=== PATIENT | male | born 1980 | race African-American/Black ===

== ENCOUNTER 2018-04-28 07:29 | Inpatient (IN) | payer SELFPAY ==
[2018-04-28] MEDS ORDERED: Fentanyl 20 mcg/ml (100 ml CADD) IV PRN (07:49)
[2018-04-28] MEDS ORDERED: Fentanyl 100 MCG/2 ML VIAL ONE (07:50)
[2018-04-28 07:51] LABS: pH, Arterial 7.35 (7.35-7.45)
[2018-04-28 07:52] LABS: Actual Bicarbonate (HCO3a) 20.8 mEq/L (22-28); Base Excess (BEa) -4.4 mEq/L (-2.0 to +3.0); CO2 Tension 38.8 mmHg (35.0-45.0); Calcium, Ionized 1.1 mmol/L (1.12-1.30); Hemoglobin (Hb) 11.3 g/dL (14.0-18.0); O2 Tension (PaO2) 301.6 mmHg (80.0-100.0)
[2018-04-28 07:53] LABS: Analyzer IN Cardio ER; Puncture Site LRA
[2018-04-28 08:09] LABS: Hemoglobin 11.7 g/dL (14.0-18.0); Mean Corpuscular HGB CONC 33.2 g/dL (32.0-36.0); Mean Corpuscular Hemoglobin 28.7 pg (27.0-31.0); Mean Corpuscular Volume 86.5 fL (78.0-98.0); Mean Platelet Volume 7.7 fL (7.4-10.4); Platelet Count 180 thou/uL (130-400); RBC Distribution Width 12.9 % (11.5-14.5); Red Blood Cell (RBC) Count 4.07 mill/uL (4.70-6.10); White Blood Cell (WBC) Count 26.6 thou/uL (4.8-10.8)
[2018-04-28 08:17] LABS: INR-International Normal Ratio 1.1; PTT 26.7 SEC (22.9-36.1); Prothrombin Time 14.4 SEC (12.0-14.7)
[2018-04-28] MEDS ORDERED: Vecuronium 10 MG VIAL ONE (08:25)
[2018-04-28] MEDS ORDERED: Midazolam HCl 2 mg/2 ml Vial ONE (08:25)
[2018-04-28 08:26] LABS: ALT (SGPT) 13 U/L (8-55); AST (SGOT) 18 U/L (5-34); Albumin 3.6 g/dL (3.5-5.0); Alcohol 95 mg/dL (Less than 10); Alkaline Phosphatase 81 U/L (40-150); Anion Gap 14 mmol/L (10-20); BUN (Urea Nitrogen) 8 mg/dL (8.9-20.6); Bilirubin, Total 0.4 mg/dL (0.2-1.2); Calc. Creatinine Clearance 0 mL/min (70-130); Calcium 7.9 mg/dL (7.8-10.44); Carbon Dioxide 21 mmol/L (22-29); Chloride 108 mmol/L (98-107); Estimated GFR-MDRD Greater than 90; Globulin 2.6 g/dL (2.4-3.5); Glucose 152 mg/dL (70-105); Potassium 3.7 mmol/L (3.5-5.1); Protein, Total 6.2 g/dL (6.0-8.3); Sodium 139 mmol/L (136-145)
[2018-04-28 08:28] LABS: Band 6 % (5-11); Crenated RBC SLIGHT = 1-5 cells (100X) (None Seen); Lymphocytes 4 % (21-51); MDiff Complete? YES; Monocytes 4 % (0-10); Neutrophil 83 % (42-75); PLT Morphology Comment Appears Adequate; Reactive Lymphocytes 3 % (0-10)
[2018-04-28] MEDS ORDERED: CEFAZOLIN/Water 2 GM/20 ML SYRINGE SLOW IVP SCH (08:45)
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
[2018-04-28] MEDS ORDERED: Dextrose 5% in Water 1,000 ML IV PRN (09:54)
[2018-04-28] MEDS ORDERED: hydrALAZINE 20 MG/ML VIAL SLOW IVP PRN (09:54)
[2018-04-28] MEDS ORDERED: Ondansetron HCl/PF 4 MG/2 ML Vial IVP PRN (09:54)
[2018-04-28] MEDS ORDERED: Calcium Chloride 1 GM/10 ML Abboject SYRINGE IVP SCH (09:54)
[2018-04-28] MEDS ORDERED: Dextrose 50% Abboject 50 ML SYRINGE SLOW IVP PRN (09:54)
[2018-04-28] MEDS ORDERED: Ondansetron ODT 4 MG TAB PO PRN (09:54)
[2018-04-28 09:58] VITALS: BMI 23.3
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
[2018-04-28] MEDS ORDERED: Ketorolac Tromethamine 30 MG/ML VIAL IVP SCH (10:30)
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
[2018-04-28] MEDS: Sodium Chloride 0.9% 1,000 ML IV SCH ×2 (10:31→17:34)
[2018-04-28 10:42] LABS: Hemoglobin 11.1 g/dL (14.0-18.0)
[2018-04-28] MEDS ORDERED: ISOVUE-370 76%-LOCM 1 ML ONE (11:20)
[2018-04-28] MEDS ORDERED: Acetaminophen 1,000 MG in Premix Bag 1 BAG IVPB SCH (12:00)
[2018-04-28] MEDS: Gabapentin 300 MG CAP PO SCH ×2 (14:12→20:59)
[2018-04-28] MEDS ORDERED: traMADol HCl 50 MG TAB PO PRN ×2 (14:39)
[2018-04-28] MEDS: Acetaminophen 500 MG TAB PO SCH ×2 (15:47→20:59)
[2018-04-28] MEDS: Ketorolac Tromethamine 30 MG/ML VIAL IVP SCH (17:35)
[2018-04-28] MEDS: Famotidine 20 MG TAB PO SCH (20:59)
[2018-04-29] MEDS: Ketorolac Tromethamine 30 MG/ML VIAL IVP SCH ×4 (00:33→18:49)
[2018-04-29] MEDS: Sodium Chloride 0.9% 1,000 ML IV SCH ×3 (02:27→18:15)
[2018-04-29] MEDS: Acetaminophen 500 MG TAB PO SCH ×2 (03:17→08:27)
[2018-04-29 06:15] LABS: #Basophils 0.1 thou/uL (0.0-0.2); #Eosinphils 0.1 thou/uL (0.0-0.7); #Lymphocytes 2.6 thou/uL (1.20-3.40); #Neutrophils 10.4 thou/uL (1.40-6.50); %Basophils 0.4 % (0.0-1.0); %Eosinophils 0.7 % (0.0-10.0); %Lymphocytes 16.9 % (21.0-51.0); %Monocytes 13.4 % (0.0-10.0); %Neutrophils 68.6 % (42.0-75.0); Hemoglobin 8.2 g/dL (14.0-18.0); Mean Corpuscular HGB CONC 34.4 g/dL (32.0-36.0); Mean Corpuscular Hemoglobin 29.6 pg (27.0-31.0); Mean Corpuscular Volume 86.3 fL (78.0-98.0); Mean Platelet Volume 7.9 fL (7.4-10.4); Platelet Count 135 thou/uL (130-400); Red Blood Cell (RBC) Count 2.75 mill/uL (4.70-6.10); White Blood Cell (WBC) Count 15.2 thou/uL (4.8-10.8)
[2018-04-29 06:16] LABS: Anion Gap 7 mmol/L (10-20); BUN (Urea Nitrogen) 7 mg/dL (8.9-20.6); Calc. Creatinine Clearance 145 mL/min (70-130); Calcium 8.1 mg/dL (7.8-10.44); Carbon Dioxide 29 mmol/L (22-29); Chloride 109 mmol/L (98-107); Estimated GFR-MDRD Greater than 90; Glucose 91 mg/dL (70-105); Potassium 3.9 mmol/L (3.5-5.1); Sodium 141 mmol/L (136-145)
[2018-04-29] MEDS: Gabapentin 300 MG CAP PO SCH ×3 (08:27→20:50)
[2018-04-29] MEDS: Famotidine 20 MG TAB PO SCH ×2 (08:27→20:50)
[2018-04-29] MEDS ORDERED: Midazolam HCl 2 mg/2 ml Vial ONE (12:53)
[2018-04-29] MEDS ORDERED: Fentanyl 100 MCG/2 ML VIAL ONE ×2 (12:53)
[2018-04-29] MEDS ORDERED: Lidocaine 2% 10 ML INJ ONE (13:00)
[2018-04-29] MEDS ORDERED: Hetastarch 6% 500 ML 0 ML ONE (13:00)
[2018-04-29] MEDS ORDERED: Heparin 10,000 UNITS/1 ML VIAL ONE (13:01)
[2018-04-29] MEDS: Acetaminophen 1,000 MG in Premix Bag 1 BAG IVPB SCH ×2 (13:35→18:50)
[2018-04-29] MEDS ORDERED: ePHEDrine/0.9% NaCl/PF SYRINGE 50 mg/10 ml ONE (14:22)
[2018-04-29] MEDS ORDERED: PHENYLEPHRINE-NS 100 MCG/ML 10 ML SYRINGE ONE (14:22)
[2018-04-29] MEDS ORDERED: Lidocaine 1% PF 5 ML VIAL ONE (14:22)
[2018-04-29] MEDS ORDERED: PROPOFOL 200 MG/20 ML VIAL ONE (14:22)
[2018-04-29] MEDS ORDERED: Ondansetron HCl/PF 4 MG/2 ML Vial ONE (14:22)
[2018-04-29] MEDS ORDERED: Betamet Acet/Betamet Na Ph 30 MG/5 ML VIAL ONE ×2 (14:50→15:05)
[2018-04-29] MEDS ORDERED: Bacitracin Zinc Ointment 30 gm TUBE ONE (14:54)
[2018-04-29] MEDS ORDERED: Sodium Chloride 0.9% 10 ML ONE (14:54)
[2018-04-29] MEDS ORDERED: Sodium Chloride 0.9% 20 ML ONE (15:12)
[2018-04-29] MEDS ORDERED: Thrombin 5000 UNITS/5 ML VIAL ONE (15:28)
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
[2018-04-29] MEDS: Pregabalin 50 MG CAP PO SCH (20:49)
[2018-04-30] MEDS: Acetaminophen 1,000 MG in Premix Bag 1 BAG IVPB SCH ×3 (01:23→12:50)
[2018-04-30] MEDS: Ketorolac Tromethamine 30 MG/ML VIAL IVP SCH (01:23)
[2018-04-30] MEDS: Sodium Chloride 0.9% 1,000 ML IV SCH ×2 (04:51→14:10)
[2018-04-30] MEDS: Pregabalin 50 MG CAP PO SCH (09:08)
[2018-04-30] MEDS: Famotidine 20 MG TAB PO SCH ×2 (09:09→21:02)
[2018-04-30] MEDS: Gabapentin 300 MG CAP PO SCH ×3 (09:10→21:01)
[2018-04-30] MEDS: Acetaminophen/Codeine 30-300mg Tablet PO PRN ×2 (11:55→21:02)
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
[2018-04-30] MEDS: CEFAZOLIN 1 GM VIAL IM SCH (17:50)
[2018-04-30] MEDS: Acetaminophen 500 MG TAB PO SCH ×2 (18:40→23:49)
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
[2018-05-01] MEDS ORDERED: Acetaminophen 325 MG TAB PO PRN (00:42)
[2018-05-01] MEDS ORDERED: diphenhydrAMINE 25 MG CAP PO PRN (00:44)
[2018-05-01] MEDS ORDERED: Sterile Water 10 ML VIAL FS SCH (01:00)
[2018-05-01] MEDS ORDERED: Sterile Water 10 ML VIAL FS PRN (01:15)
[2018-05-01] MEDS: CEFAZOLIN 1 GM VIAL IM SCH ×2 (01:33→12:14)
[2018-05-01 04:06] VITALS: TEMP 98.4
[2018-05-01 07:00] LABS: Band 6 % (5-11); Lymphocytes 17 % (21-51); MDiff Complete? YES; Mean Corpuscular HGB CONC 33.9 g/dL (32.0-36.0); Mean Corpuscular Hemoglobin 29.9 pg (27.0-31.0); Mean Corpuscular Volume 88.2 fL (78.0-98.0); Mean Platelet Volume 8.4 fL (7.4-10.4); Monocytes 6 % (0-10); Neutrophil 71 % (42-75); PLT Morphology Comment Appears Adequate; Platelet Count 161 thou/uL (130-400); Red Blood Cell (RBC) Count 3.34 mill/uL (4.70-6.10); White Blood Cell (WBC) Count 21.2 thou/uL (4.8-10.8)
[2018-05-01] MEDS: Famotidine 20 MG TAB PO SCH (09:18)
[2018-05-01] MEDS: Gabapentin 300 MG CAP PO SCH (09:18)
[2018-05-01] MEDS: Acetaminophen/Codeine 30-300mg Tablet PO PRN (09:22)
[2018-05-01 12:39] VITALS: BP 124/73
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
== END 2018-05-01 15:20 | disposition home or self-care (01) | DRG 907 ==
LOC: EDBD 07:29 → ERS 07:29 → EEVIPCON 09:01 → CCU 09:01 → SURG A 04-29 01:56
PROVIDERS: ADMIT Surgery; ATTEND Surgery
PROC: 03Q70ZZ Repair Right Brachial Artery, Open Approach (ICD-10-PCS; principal; 2018-04-28)
PROC: 01Q50ZZ Repair Median Nerve, Open Approach (ICD-10-PCS; 2018-04-29)
PROC: 0LM Tendons, Reattachment (ICD-10-PCS; 2018-04-29)
PROC: 01Q60ZZ Repair Radial Nerve, Open Approach (ICD-10-PCS; 2018-04-29)
PROC: 0KD90ZZ Extraction of Right Lower Arm and Wrist Muscle, Open Approach (ICD-10-PCS; 2018-04-29)
PROC: 30233N1 Transfusion of Nonautologous Red Blood Cells into Peripheral Vein, Percutaneous Approach (ICD-10-PCS; 2018-04-29)
DX: S45.111A Laceration of brachial artery, right side, initial encounter (principal); T79.4XXA Traumatic shock, initial encounter; J96.00 Acute respiratory failure, unspecified whether with hypoxia or hypercapnia; S56.521A Laceration of other extensor muscle, fascia and tendon at forearm level, right arm, initial encounter; S56.221A Laceration of other flexor muscle, fascia and tendon at forearm level, right arm, initial encounter; D62 Acute posthemorrhagic anemia; S54.11XA Injury of median nerve at forearm level, right arm, initial encounter; S51.811A Laceration without foreign body of right forearm, initial encounter; S54.21XA Injury of radial nerve at forearm level, right arm, initial encounter; X99.1XXA Assault by knife, initial encounter
CPT/HCPCS: 36415; 36430; 71045; 80048; 80053; 80307; 82150; 82805; 83605; 85025; 86850; 86900; 86901; 94002; 96365; 96375; 96376; 99292; A4216; G0390; J0131; J0690; J0702; J1644; J1885; J2001; J2250; J2405; J2704; J3010; J3370; J3490; J7050; P9016; P9048

== ENCOUNTER 2019-02-20 12:51 | Emergency (ER) | payer SELFPAY | END 2019-02-20 13:22 | disposition home or self-care (01) | LOC: ERS 12:51 | DX: H60.91 Unspecified otitis externa, right ear (principal); F41.9 Anxiety disorder, unspecified; F31.9 Bipolar disorder, unspecified; F20.9 Schizophrenia, unspecified; Z79.899 Other long term (current) drug therapy | CPT/HCPCS: 99282 ==

== ENCOUNTER 2025-08-07 11:37 | Emergency (ER) | payer OTHER, SELFPAY ==
[2025-08-07 14:05] LABS: #Basophils 0.06 10x3/uL (0.0-0.2); #Eosinophils 0.09 10x3/uL (0.0-0.7); #Monocytes 1.27 10x3/uL (0.11-0.59); #Neutrophils 7.64 10x3/uL (1.40-6.50); %Basophils 0.5 % (0.0-1.0); %Eosinophils 0.8 % (0.0-10.0); %Lymphocytes 18.1 % (21.0-51.0); %Monocytes 11.4 % (0.0-10.0); %Neutrophils 68.9 % (42.0-75.0); Hematocrit 52.8 % (42.0-52.0); Hemoglobin 17.4 g/dL (14.0-18.0); Mean Corpuscular Hemoglobin 26.6 pg (27.0-31.0); Mean Corpuscular Volume 80.7 fL (78.0-98.0); Platelet Count 296 10x3/uL (130-400); Red Blood Cell (RBC) Count 6.54 mill/uL (4.70-6.10); White Blood Cell (WBC) Count 11.10 10x3/uL (4.8-10.8)
[2025-08-07 14:22] LABS: ALT (SGPT) 24 U/L (Less than 45); AST (SGOT) 34 U/L (11-34); Albumin 4.1 g/dL (3.1-4.5); Alkaline Phosphatase 93 U/L (40-110); Anion Gap 13 mmol/L (10-20); BUN (Urea Nitrogen) 17 mg/dL (8.9-20.6); Bilirubin, Total 0.6 mg/dL (0.3-1.2); Calc. Creatinine Clearance 0 mL/min (70-130); Calcium 9.1 mg/dL (7.8-10.44); Carbon Dioxide 28 mmol/L (22-29); Chloride 102 mmol/L (98-107); Globulin 3.2 g/dL (2.4-3.5); Glucose 76 mg/dL (70-105); Potassium 4.0 mmol/L (3.5-5.1); Sodium 139 mmol/L (136-145)
[2025-08-07 14:39] LABS: Bacteria/HPF 1+ HPF (None Seen); CAUTI Indications for Culture Dysuria,urgency,freq; Glucose, Urine (Dipstick) Normal (Negative); Leukocyte 75 Leu/uL (Negative); Protein, Urine (Dipstick) Negative (Neg-Trace); RBC/HPF 0-3 HPF (0-3); Specific Gravity, Urine 1.011 (1.002-1.036)
[2025-08-07 14:40] LABS: Urine Culture Reflex No No
[2025-08-07] MEDS ORDERED: Ketorolac Tromethamine 30 MG (1 mL) VIAL ONE (14:48)
[2025-08-07] MEDS ORDERED: cefTRIAXone (ROCEPHIN) 500 MG VIAL ONE (16:24)
[2025-08-07 23:42] LABS: Chlam.trachomatis by PCR,Urine Not Detected (NotDetected); GC N.gonorrhoeae PCR,UrineVOID Not Detected (NotDetected)
== END 2025-08-07 16:30 | disposition home or self-care (01) ==
LOC: ERS 11:37
DX: R42 Dizziness and giddiness (principal); R30.0 Dysuria
CPT/HCPCS: 70450; 71045; 80053; 81001; 85025; 87428; 87491; 87591; 93005; 96372; J0696; J1885